=== PATIENT | male | born 1995 | race Two or more races ===

== ENCOUNTER 2017-12-08 00:16 | Inpatient (IN) | payer MEDICAID ==
[~2017-12-08] VITALS: Ht 165.1 cm; Wt 65.3 kg
[2017-12-08] MEDS ORDERED: LABETALOL HCL 5 MG/ML ML 20ML VIAL IV ONE (01:00)
[2017-12-08] MEDS ORDERED: cloNIDine HCL 0.1 MG TAB PO ONE (01:00)
[2017-12-08] MEDS ORDERED: hydrALAZINE HCL 20 MG/ML VL IV ONE (01:00)
[2017-12-08 01:10] LABS: Basophils # (auto) 0.1 uL; Basophils % (auto) 0.6 % (0.0-2.0); Eosinophils # (auto) 0.3 uL; Eosinophils % (auto) 2.8 % (0.0-7.0); Hematocrit 32.7 % (41.0-53.0); Hemoglobin 10.8 g/dL (13.5-17.5); Lymphocytes # (auto) 1.7 uL; Mean Corpuscular Hemoglobin 29.1 pg (28.0-32.0); Monocytes # (auto) 0.6 uL; Monocytes % (auto) 5.9 % (0.0-12.0); Neutrophils % (auto) 72.7 % (37.0-80.0); Platelet Count (auto) 194 10^3/uL (140-450); Red Blood Cells 3.71 10^6/uL (4.5-5.90); Red Cell Distribution Width 13.3 % (11.8-14.3); White Blood Cell 9.6 10^3/uL (4.4-10.8)
[2017-12-08] MEDS ORDERED: ONDANSETRON HCL 4 MG/2 ML VIAL IV ONE (01:30)
[2017-12-08 01:31] LABS: Albumin 3.2 g/dL (3.4-5.0); Calcium 7.7 mg/dL (8.5-10.1); Magnesium 1.9 mg/dL (1.6-2.6)
[2017-12-08 01:35] LABS: Bilirubin, Total 0.5 mg/dL (0.2-1.0); Total Protein 6.6 g/dL (6.4-8.2)
[2017-12-08] MEDS ORDERED: SPIRONOLACTONE 25 MG TAB PO ONE (01:45)
[2017-12-08] MEDS ORDERED: FUROSEMIDE 40 MG/4 ML VIAL IV ONE (01:45)
[2017-12-08 01:47] LABS: Potassium 6.5 mmol/L (3.5-5.1)
[2017-12-08] MEDS ORDERED: InsuLIN REG 1unit/0.01ml Soln (100units/ml) IV ONE (02:00)
[2017-12-08] MEDS ORDERED: SODIUM BICARBONATE 8.4 % INJ 50ML VIAL IV ONE (02:00)
[2017-12-08] MEDS ORDERED: DEXTROSE (50%) 50ML SYRG IV ONE (02:00)
[2017-12-08] MEDS ORDERED: CALCIUM GLUC 4.65meq/50ml D5AE 50 ML IV ONE (02:00)
[2017-12-08] MEDS ORDERED: SODIUM POLYSTYRENE SULF 15GM/60ML SUSP PO ONE (02:00)
[2017-12-08] MEDS ORDERED: cloNIDine HCL 0.1 MG TAB PO PRN (04:45)
[2017-12-08] MEDS ORDERED: ONDANSETRON HCL 4 MG/2 ML VIAL IV PRN (04:45)
[2017-12-08] MEDS ORDERED: ACETAMINOPHEN 500 MG TAB PO PRN (04:45)
[2017-12-08] MEDS ORDERED: MORPHINE SULFATE 4 MG/ML SYR/VIAL IV PRN (04:45)
[2017-12-08] MEDS: hydrALAZINE HCL 25 MG TAB PO SCH ×3 (07:00→17:52)
[2017-12-08 09:00] VITALS: BP 177/112
[2017-12-08 09:23] VITALS: BP 177/112
[2017-12-08] MEDS ORDERED: INFLUENZA QUAD 2018-2019 0.5 ML SYRG IM ONE (09:45)
[2017-12-08] MEDS: LABETALOL HCL 200 MG TAB PO SCH ×2 (09:46→21:48)
[2017-12-08] MEDS ORDERED: NIFEdipine ER 30 MG TAB PO SCH (10:00)
[2017-12-08 13:00] VITALS: BP 169/111
[2017-12-08] MEDS: NIFEdipine ER 30 MG TAB PO SCH (13:03)
[2017-12-08] MEDS ORDERED: EPOETIN ALFA 10,000 UNIT/1 ML VIAL IV ONE (13:30)
[2017-12-08 14:27] LABS: Urine WBC None Seen /hpf (0 - 3)
[2017-12-08 14:38] LABS: Urine Bacteria NONE SEEN /hpf (None Seen); Urine Blood TRACE /uL (Negative); Urine Specific Gravity 1.007 (1.001-1.035)
[2017-12-08 17:05] VITALS: BP 161/88
[2017-12-08 22:00] VITALS: BP 159/108
[2017-12-09] MEDS: hydrALAZINE HCL 25 MG TAB PO SCH ×4 (00:06→17:19)
[2017-12-09 05:00] VITALS: BP 146/88
[2017-12-09 07:07] LABS: Basophils # (auto) 0 uL; Basophils % (auto) 0.5 % (0.0-2.0); Eosinophils # (auto) 0.1 uL; Eosinophils % (auto) 1.6 % (0.0-7.0); Hematocrit 35.9 % (41.0-53.0); Hemoglobin 12.2 g/dL (13.5-17.5); Lymphocytes % (auto) 22.3 % (10.0-50.0); Mean Corpuscular Hemoglobin 29.7 pg (28.0-32.0); Mean Corpuscular Volume 87.3 fL (80.0-100.0); Monocytes # (auto) 0.8 uL; Monocytes % (auto) 9.1 % (0.0-12.0); Neutrophils # (auto) 5.8 uL; Neutrophils % (auto) 66.5 % (37.0-80.0); Nucleated Red Blood Cells % 0.1 %; Platelet Count (auto) 175 10^3/uL (140-450); Red Blood Cells 4.11 10^6/uL (4.5-5.90); Red Cell Distribution Width 13.5 % (11.8-14.3); White Blood Cell 8.7 10^3/uL (4.4-10.8)
[2017-12-09 07:26] LABS: BUN/Creatinine Ratio 2.8; Calcium 8.6 mg/dL (8.5-10.1)
[2017-12-09 07:29] LABS: Potassium 6.1 mmol/L (3.5-5.1)
[2017-12-09 08:09] VITALS: BP 145/83
[2017-12-09 09:07] VITALS: BP 145/83
[2017-12-09] MEDS: LABETALOL HCL 200 MG TAB PO SCH (09:54)
[2017-12-09] MEDS: NIFEdipine ER 30 MG TAB PO SCH (09:55)
[2017-12-09 12:56] VITALS: BP 141/74
[2017-12-09 13:01] VITALS: BP 141/74
[2017-12-09 16:45] VITALS: BP 153/71
== END 2017-12-09 19:16 | disposition home or self-care (01) | DRG 194 ==
LOC: ER 00:18 → TELE 00:19 → TELE-EAST 09:21
PROVIDERS: ADMIT Nurse Practitioner Family; ATTEND Internal Medicine
PROC: 5A1D70Z Performance of Urinary Filtration, Intermittent, Less than 6 Hours Per Day (ICD-10-PCS; principal; 2017-12-08)
PROC: 5A1D70Z Performance of Urinary Filtration, Intermittent, Less than 6 Hours Per Day (ICD-10-PCS; 2017-12-09)
DX: I13.2 Hypertensive heart and chronic kidney disease with heart failure and with stage 5 chronic kidney disease, or end stage renal disease (principal); E11.22 Type 2 diabetes mellitus with diabetic chronic kidney disease; N18.6 End stage renal disease; E87.70 Fluid overload, unspecified; E87.5 Hyperkalemia; D63.1 Anemia in chronic kidney disease; R04.2 Hemoptysis; I50.33 Acute on chronic diastolic (congestive) heart failure; Z99.2 Dependence on renal dialysis; Z91.19 Patient's noncompliance with other medical treatment and regimen; Z88.6 Allergy status to analgesic agent
CPT/HCPCS: 36415; 71045; 71250; 80048; 80053; 81001; 83605; 83735; 84484; 85025; 86850; 86900; 86901; 87040; 87081; 90674; 90935; 96374; 96375; 99291; J0610; J0885; J1815; J2405

== ENCOUNTER 2018-03-11 20:16 | Inpatient (IN) | payer MEDICAID | END 2018-03-14 13:43 | disposition home or self-care (01) | LOC: ER 20:16 → OVERFLOW 03-12 07:38 → CENTRAL 03-12 14:50 | DX: K52.9 Noninfective gastroenteritis and colitis, unspecified (principal); E46 Unspecified protein-calorie malnutrition; N18.6 End stage renal disease; A08.4 Viral intestinal infection, unspecified; I10 Essential (primary) hypertension ==